=== PATIENT | male | born 1985 ===

== ENCOUNTER 2016-09-30 20:31 | Observation (INO) | payer OTHER ==
[2016-09-30 20:33] VITALS: BMI 28.3
[2016-09-30] MEDS ORDERED: Sodium Chloride 0.9% 1,000 ML IV STA ×2 (21:25→23:26)
[2016-09-30] MEDS ORDERED: DiphenhydrAMINE 50 mg/ml Inj IVP STA (21:25)
--- NOTE | 2016-09-30 21:26 | ED PDOC ---
Arrival/HPI - General Historian: Patient - History of Present Illness Time/Duration: Other (1 day) Context: Home - General Chief Complaint: Fever Time Seen by Provider: 09/30/16 21:24 - History of Present Illness Narrative History of Present Illness (Text): 09/30/16 21:20 This 31 yo male presents to this ED c/o sore throat, and fever, nausea x 1 day. Patient stated sore throat is causing him to have a headache. Patient denies vomiting, sob, rash, sick contact, recent travel, dizziness, hemoptysis, photophobia, neck stiffness, rash, or abnormal gait. (Orlin Wild) Past Medical History - Provider Review Nursing Documentation Reviewed: Yes - Infectious Disease Hx of Infectious Diseases: None - Psychiatric Hx Substance Use: No - Anesthesia Hx Anesthesia: No Family/Social History - Physician Review Nursing Documentation Reviewed: Yes Family/Social History: No Known Family HX Smoking Status: Never Smoked Hx Alcohol Use: Yes Frequency of alcohol use: Socially Hx Substance Use: No Allergies/Home Meds Allergies/Adverse Reactions: Allergies No Known Allergies Allergy (Verified 09/30/16 21:09) Review of Systems - Review of Systems Constitutional: Fevers. absent: Fatigue, Weight Change, Night Sweats Eyes: Normal. absent: Vision Changes, Photophobia, Eye Pain ENT: Sore Throat. absent: Rhinorrhea, Epistaxis Respiratory: Normal. absent: SOB, Cough, Sputum, Wheezing Cardiovascular: Normal Gastrointestinal: Normal. absent: Abdominal Pain, Nausea, Vomiting Genitourinary Male: Normal. absent: Dysuria, Frequency, Hematuria Musculoskeletal: Normal Skin: Normal. absent: Rash Neurological: Headache. absent: Dizziness, Focal Weakness, Gait Changes, Speech Changes, Facial Droop, Disequilibrium Endocrine: Normal Hemo/Lymphatic: Normal Psychiatric: Normal Physical Exam Temperature: Febrile Blood Pressure: Normal Pulse: Tachycardic Respiratory Rate: Normal Appearance: Positive for: Well-Appearing, Non-Toxic, Comfortable Pain Distress: None Mental Status: Positive for: Alert and Oriented X 3 - Systems Exam Head: Present: Atraumatic, Normocephalic Pupils: Present: PERRL Extroacular Muscles: Present: EOMI Conjunctiva: Present: Normal Ears: Present: Normal, NORMAL TM, Normal Canal. No: Erythema, TM Bulging, Fluid Mouth: Present: Moist Mucous Membranes, Normal Lips, Normal Tounge. No: Drooling Pharnyx: Present: ERYTHEMA. No: EXUDATE, TONSILS ENLARGED Neck: Present: Normal Range of Motion, Trachea Midline, Other (No Kernig sign, or Brudzinski sign). No: Meningeal Signs, MIDLINE TENDERNESS, Paraspinal Tenderness, Lymphadenopathy Respiratory/Chest: Present: Clear to Auscultation, Good Air Exchange. No: Respiratory Distress, Accessory Muscle Use, Wheezes, Retracting, Rhonchi Cardiovascular: Present: Regular Rate and Rhythm, Normal S1, S2. No: Murmurs Abdomen: Present: Normal Bowel Sounds. No: Tenderness, Distention, Peritoneal Signs Back: Present: Normal Inspection Upper Extremity: Present: Normal Inspection, Normal ROM, NORMAL PULSES, Neurovascularly Intact, Capillary Refill < 2s. No: Cyanosis, Edema Lower Extremity: Present: Normal Inspection, NORMAL PULSES, Normal ROM, Neurovascularly Intact, Capillary Refill < 2 s. No: Edema Neurological: Present: GCS=15, CN II-XII Intact, Speech Normal, Motor Func Grossly Intact, Normal Sensory Function, Normal Cerebellar Funct, Gait Normal Skin: Present: Warm, Dry, Normal Color. No: Rashes Psychiatric: Present: Alert, Oriented x 3, Normal Insight, Normal Concentration Vital Signs Temp Pulse Resp BP Pulse Ox 10/01/16 02:18 89 18 111/69 98 09/30/16 22:27 100.5 F H 115 H 18 114/55 L 95 09/30/16 21:53 102.9 F H 09/30/16 20:32 102.9 F H 118 H 18 113/68 95 Medical Decision Making Re-evaluation Time: 01:07 Reassessment Condition: Re-examined, Improving,but remains with symptoms ED Course and Treatment: I was available for consultation during PA evaluation. The chart reviewed by me , and I agree with disposition. The documented history was done by the physician fryer line helper. The documented physical exam was done by physician fryer line helper. The documented procedures were done by physician fryer line helper. (Isac Burkett) 10/01/16 01:[address] Cramer regarding patient symptoms. Patient continues with symptoms, elevated Leuk.. Pending CT head. He recommended to order CT chest w/ o to r/o PNA. He agrees with for observation. (Wild,Nahim P) - Lab Interpretations Lab Results: 09/30/16 21:40 09/30/16 21:40 Lab Results 09/30/16 23:50: pO2 90 H, VBG pH 7.40, VBG pCO2 38.0 L, VBG HCO3 23.5, VBG Total CO2 24.7, VBG O2 Sat (Calc) 98.7 H, VBG Base Excess -1.1 L, VBG Potassium 3.7, Glucose 120 H, Lactate 0.8, FiO2 21.0, Sodium 137.0, Chloride 104.0, Venous Blood Potassium 3.7 09/30/16 21:40: Sodium 139, Potassium 4.5, Chloride 98, Carbon Dioxide 24, Anion Gap 22 H, BUN 12, Creatinine 1.1, Est GFR ( Amer) > 60, Est GFR ( Non-Af Amer) > 60, Random Glucose 81, Calcium 10.0, Total Bilirubin 1.6 H, AST 43, ALT 49, Alkaline Phosphatase 62, Total Protein 8.3, Albumin 5.3 H, Globulin 3.1, Albumin/Globulin Ratio 1.7 09/30/16 21:40: WBC 18.3 H, RBC 5.19, Hgb 16.7, Hct 48.6, MCV 93.6, MCH 32.2, MCHC 34.4, RDW 12.0, Plt Count 288, MPV 11.6 H, Gran % 88.5 H, Lymph % (Auto) 5.6 L, [place] % (Auto) 5.8, Eos % (Auto) 0.0 L, Baso % (Auto) 0.1, Gran # 16.16 H , Lymph # 1.0 L, [place] # 1.1 H, Eos # 0.0, Baso # 0.02, Neutrophils % (Manual) 85 H, Lymphocytes % (Manual) 8 L, Monocytes % (Manual) 6, Eosinophils % (Manual ) 1, Platelet Evaluation Normal 09/30/16 21:40: Urine Color Yellow, Urine Appearance Clear, Urine pH 7.0, Ur Specific [place] 1.010, Urine Protein Negative, Urine Glucose (UA) Negative, Urine Ketones Negative, Urine Blood Small H, Urine Nitrate Negative, Urine Bilirubin Negative, Urine Urobilinogen 0.2, Ur Leukocyte Esterase Negative, Urine RBC 1 - 3, Urine WBC 0 - 2, Urine Bacteria Few - RAD Interpretation Narrative RAD Interpretations (Text): [facility] Division of Radiology [address] [place] [address] Tel. no. Patient Name: JONI BECKER Pt. Address: [address] [place] [address] Med. Rec #: [id number] [place] [address]: Orlin Wild PA-C Pt Order Location: [facility] : 1985 Male Age: 31 Order #: [id number] Reason for exam: GALINDO CT Scan HEAD W/O CONTRAST Exam Date: 09/30/16 This imaging exam was performed at [facility] EXAM: CT Head Without Intravenous Contrast CLINICAL HISTORY: 31 years old, male; Pain; Headache; Additional info: GALINDO TECHNIQUE: Axial computed tomography images of the head/brain without intravenous contrast. All CT scans at this facility use one or more dose reduction techniques, viz.: automated exposure control; ma/kV adjustment per patient size (including targeted exams where dose is matched to indication; i.e. head); or iterative reconstruction technique. COMPARISON: No relevant prior studies available. FINDINGS: Brain: No intracranial hemorrhage. No mass. No definite edema. Ventricles: No hydrocephalus. Bones/joints: No acute fracture. Soft tissues: Unremarkable. Sinuses: No acute sinusitis. Mastoid air cells: No mastoid effusion. Orbits: Unremarkable as visualized. IMPRESSION: 1. No acute intracranial abnormality. Dictated By: Tripp English MD Dictated Date/Time: 10/01/16222 Signed By: Tripp English MD Date Signed: 222 Transcribed By: NATAN Transcribe Date/Time : 10/01/16222 ACYP02/JL [facility] Division of Radiology [address] [place] [address] Tel. no. Patient Name: JONI BECKER Pt. Address: [address] [place] [address] Med. Rec #: [id number] [place] [address]: Orlin Wild PA-C Pt Order Location: [facility] : 1985 Male Age: 31 Order #: [id number] Reason for exam: cough, fever CT Scan CHEST W/O CONTRAST Exam Date: 10/01/16 This imaging exam was performed at [facility] EXAM: CT Chest Without Intravenous Contrast CLINICAL HISTORY: 31 years old, male; Pain; Chest pain; Patient HX: Cough, fever TECHNIQUE: Axial computed tomography images of the chest without intravenous contrast. All CT scans at this facility use one or more dose reduction techniques, viz.: automated exposure control; ma/kV adjustment per patient size (including targeted exams where dose is matched to indication; i.e. head); or iterative reconstruction technique. MIP reconstructed images were created and reviewed. Coronal and sagittal reformatted images were created and reviewed. COMPARISON: No relevant prior studies available. FINDINGS: Limitations: Lack of intravenous contrast. Lungs: Minimal peripheral airspace disease posterior LEFT lower lobe. Few pulmonary nodules, up to 0.4 cm. Pleural space: No pneumothorax. No significant effusion. Heart: Borderline cardiomegaly. No significant pericardial effusion. Bones/joints: No acute fracture. Soft tissues: Unremarkable. Vasculature: Unremarkable. No aneurysm. Lymph nodes: No pathologically enlarged lymph nodes. IMPRESSION: 1. Probable LEFT lower lobe atelectasis. Early pneumonia not entirely excluded. 2. Pulmonary nodules. For low-risk patients, no follow-up is necessary. For high-risk patients (smoking history or other known risk factors) an optional CT at 12 months could be performed. 3. Incidental/non-acute findings are described above. Dictated By: Tripp English MD Dictated Date/Time: 10/01/16227 Signed By: Tripp English MD Date Signed: 227 Transcribed By: NATAN Transcribe Date/Time : 10/01/16227 ACYP02/JL (Orlin Wild) Radiology Orders: 09/30/16 23:24 CHEST PORTABLE [RAD] Stat 09/30/16 23:25 HEAD W/O CONTRAST [CT] Stat 10/01/16 01:01 CHEST W/O CONTRAST [CT] Stat - Medication Orders Current Medication Orders: Discontinued Medications Acetaminophen (Tylenol 325mg Tab) 975 mg PO STAT STA Stop: 09/30/16 21:27 Last Admin: 09/30/16 21:53 Dose: 975 mg Acetaminophen (Tylenol 325mg Tab) 650 mg PO Q4 PRN PRN Reason: Fever >100.4 F Acetaminophen (Tylenol 325mg Tab) 650 mg PO Q6H PRN PRN Reason: Pain, Mild (1-3) Diphenhydramine HCl (Benadryl) 25 mg IVP STAT STA Stop: 09/30/16 21:26 Last Admin: 09/30/16 21:52 Dose: 25 mg Sodium Chloride (Sodium Chloride 0.9%) 1,000 mls @ 999 mls/hr IV .Q1H1M STA Stop: 09/30/16 22:25 Last Admin: 09/30/16 21:52 Dose: 999 mls/hr Sodium Chloride (Sodium Chloride 0.9%) 1,000 mls @ 999 mls/hr IV .Q1H1M STA Stop: 10/01/16 00:26 Last Admin: 09/30/16 23:26 Dose: 999 mls/hr Ceftriaxone Sodium (Rocephin 1 Gram Ivpb) 1 gm in 100 mls @ 200 mls/hr IVPB STAT STA PRN Reason: Protocol Stop: 10/01/16 00:23 Last Admin: 10/01/16 01:42 Dose: 200 mls/hr Azithromycin (Zithromax 500mg In Ns) 500 mg in 250 mls @ 167 mls/hr IVPB STAT STA PRN Reason: Protocol Stop: 10/01/16 01:23 Last Admin: 10/01/16 03:02 Dose: 167 mls/hr Dextrose/Sodium Chloride (Dextrose 5%/0.45% Ns 1000 Ml) 1,000 mls @ 150 mls/hr IV .Q6H40M VITO Levofloxacin/Dextrose (Levaquin 750mg) 750 mg in 150 mls @ 100 mls/hr IVPB STAT STA Stop: 10/01/16 03:59 Last Admin: 10/01/16 03:02 Dose: 100 mls/hr Potassium Chloride/Dextrose/Sod Cl (Potassium Chl 20 Meq In D5-1/2ns) 1,000 mls @ 150 mls/hr IV .Q6H40M VITO Last Admin: 10/01/16 03:02 Dose: 150 mls/hr Levofloxacin/Dextrose (Levaquin 750mg) 750 mg in 150 mls @ 100 mls/hr IVPB DAILY [facility] Ketorolac Tromethamine (Toradol) 15 mg IVP STAT STA Stop: 09/30/16 21:27 Last Admin: 09/30/16 21:53 Dose: 15 mg Ketorolac Tromethamine (Toradol) 30 mg IVP STAT STA Stop: 10/01/16 02:26 Last Admin: 10/01/16 03:01 Dose: 30 mg Metoclopramide HCl (Reglan) 10 mg IVP STAT STA Stop: 09/30/16 21:26 Last Admin: 09/30/16 21:52 Dose: 10 mg Ondansetron HCl (Zofran Inj) 8 mg IVP STAT STA Stop: 10/01/16 02:26 Pantoprazole Sodium (Protonix Inj) 40 mg IVP DAILY [facility] Last Admin: 10/01/16 09:57 Dose: 40 mg Disposition/Present on Arrival - Present on Arrival Any Indicators Present on Arrival: No History of DVT/PE: No History of Uncontrolled Diabetes: No Urinary Catheter: No History of Decub. Ulcer: No History Surgical Site Infection Following: None - Disposition Have Diagnosis and Disposition been Completed?: Yes Disposition Time: 01:08 Patient Plan: Admission - Disposition Diagnosis: Leukocytosis, Generalized weakness, Pneumonia Disposition: HOSPITALIZED Condition: STABLE
[2016-09-30 22:03] LABS: URINE BILIRUBIN NEGATIVE (NEGATIVE); URINE BLOOD SMALL (NEGATIVE); URINE GLUCOSE (UA) NEGATIVE (NEGATIVE); URINE KETONE NEGATIVE (NEGATIVE); URINE LEUKOCYTE ESTERASE NEGATIVE Leu/uL (NEGATIVE); URINE PROTEIN NEGATIVE mg/dL (<30 mg/dL); URINE UROBILINOGEN 0.2 E.U./dL (<1 E.U./dL)
[2016-09-30 22:09] LABS: URINE APPEARANCE CLEAR (CLEAR); URINE COLOR YELLOW (YELLOW)
[2016-09-30 22:26] LABS: URINE BACTERIA FEW (NEG); URINE WBC 0 - 2 /hpf (0-6)
[2016-09-30] MEDS ORDERED: Azithromycin 500MG/NS 250ml 500 MG/250 ML BAG IVPB STA (23:54)
[2016-09-30] MEDS ORDERED: cefTRIAXone 1 gm 1 GM/100 ML BAG IVPB STA (23:54)
[2016-10-01 00:13] LABS: BASO # 0.02 K/mm3 (0.0-2.0); BASO % 0.1 % (0.0-3.0); GRAN # 16.16 (1.4-6.5); GRAN % 88.5 % (50.0-68.0); HEMATOCRIT 48.6 % (42.0-52.0); LYMPH % 5.6 % (22.0-35.0); MEAN CELL VOLUME 93.6 fl (80.0-105.0); MEAN CORPUSCULAR HEMOGLOBIN 32.2 pg (25.0-35.0); MEAN CORPUSCULAR HGB CONC 34.4 g/dl (31.0-37.0); MEAN PLATELET VOLUME 11.6 fl (7.0-11.0); MONO # 1.1 (0.1-0.6); MONO % 5.8 % (1.0-6.0); PLATELET COUNT 288 10^3/uL (120.0-450.0); WHITE BLOOD COUNT 18.3 10^3/ul (4.5-11.0)
[2016-10-01 00:23] LABS: ALB/GLOB RATIO 1.7 (1.1-1.8); ALKALINE PHOSPHATASE 62 U/L (38-133); ALT/SGPT 49 U/L (7-56); AST/SGOT 43 U/L (15-59); BILIRUBIN,TOTAL 1.6 mg/dL (0.2-1.3); BLOOD UREA NITROGEN 12 mg/dL (7-21); CARBON DIOXIDE 24 mmol/L (21-33); CHLORIDE 98 mmol/L (98-107); GFR AFRICAN-AMERICAN > 60; GLUCOSE,RANDOM 81 mg/dL (70-110); POTASSIUM 4.5 mmol/L (3.6-5.0); SODIUM 139 mmol/L (132-148); TOTAL PROTEIN 8.3 g/dL (5.8-8.3)
[2016-10-01 00:24] LABS: VENOUS BLOOD GAS BASE EXCESS -1.1 mmol/L (0.0-2.0)
--- NOTE | 2016-10-01 02:18 | CP.PCM.HP ---
<Yakov Amaral - Last Filed: 10/01/16 02:37> History of Present Illness - History of Present Illness History of Present Illness: CC: Throat pain HPI: Pt is a 31 year old male with no significant past medical history who presents to [facility] ED complaining of headache and fever. Patient reports at 5 am this morning he woke up feeling feverish and with a frontal headache that has lasted him the entire day. Patient also indicates he has a sore throat with pain with swallowing. He denies any change in his vision or stiffness in his neck. Patient reports one episode of vomiting and associated nausea. He denies taking any medication for his symptoms. He states he has had sore throats in the past. He denies any sick contacts. Patient also reports midline lower back tenderness. He denies any urinary or bowel retention/incontinence as well as saddle anesthesia. He denies IVDA, chest pain, shortness of breath, abdominal pain, chills, rashes or change in bowel habits. 12 point ROS is negative otherwise mentioned in HPI. PMH: none PSH: none FMH: HTN, DM2 SH: Tob: denies, ETOH: social, ID: denies, Lives with and children, works as [employer] ALL: NKDA Meds: none PMD: none Present on Admission - Present on Admission Any Indicators Present on Admission: No History of DVT/PE: No History of Uncontrolled Diabetes: No Urinary Catheter: No Review of Systems - Review of Systems All systems: reviewed and no additional remarkable complaints except Review of Systems: except for what is mentioned in HPI Past Patient History - Infectious Disease Hx of Infectious Diseases: None - Past Social History Smoking Status: Never Smoked Alcohol: Social Drugs: Denies - PSYCHIATRIC Hx Substance Use: No - SURGICAL HISTORY Hx Surgeries: No - ANESTHESIA Hx Anesthesia: No Meds Allergies/Adverse Reactions: Allergies Allergy/AdvReac Type Severity Reaction Status Date / Time No Known Allergies Allergy Verified 09/30/16 21:09 Physical Exam - Head Exam Head Exam: ATRAUMATIC, NORMAL INSPECTION, NORMOCEPHALIC - Eye Exam Eye Exam: EOMI, PERRL - ENT Exam ENT Exam: Mucous Membranes Moist Additional comments: swollen tonsils noted +2, with exudates bilaterally - Neck Exam Neck exam: Positive for: Full Rom, Tenderness. Negative for: Thyromegaly - Respiratory Exam Respiratory Exam: Clear to Auscultation Bilateral, NORMAL BREATHING PATTERN - Cardiovascular Exam Cardiovascular Exam: Tachycardia, REGULAR RHYTHM, +S1, +S2 - GI/Abdominal Exam GI & Abdominal Exam: Normal Bowel Sounds, Soft - Extremities Exam Extremities exam: Positive for: full ROM, normal inspection, pedal pulses present. Negative for: calf tenderness - Back Exam Back exam: NORMAL INSPECTION, tenderness (midline lumbar spine and left lumbar) . absent: CVA tenderness (L), CVA tenderness (R) - Neurological Exam Neurological exam: Alert, CN II-XII Intact, Normal Gait, Oriented x3, Reflexes Normal - Psychiatric Exam Psychiatric exam: Normal Affect, Normal Mood - Skin Skin Exam: Dry, Intact, Normal Color, Warm Results - Vital Signs Recent Vital Signs: Last Vital Signs Temp 100.5 F H 09/30/16 22:27 Pulse 115 H 09/30/16 22:27 Resp 18 09/30/16 22:27 BP 114/55 L 09/30/16 22:27 Pulse Ox 95 09/30/16 22:27 - Labs Result Diagrams: 09/30/16 21:40 09/30/16 21:40 Assessment & Plan - Assessment and Plan (Free Text) Assessment: Pt is a 31 year old male with no significant past medical history who presents to [facility] ED complaining of headache and fever. He was found to have swollen tonsils with exudates present. Plan: 1. Tonsillitis - Exam showing swelling of tonsillitis b/l with exudates - WBC of 18, Fever on admission - Tylenol for pain - Rapid strep test - Flu A and B test - Soft liquid diet - IVF D5 1/2NS with 20 of LLC - Levaquin - follow up blood culture - CBC in AM - Follow up neck CT 2. Lower back pain - Toradol and Tylenol - monitor 3. GI ppx - Protonix Case discussed and reviewed with attending - Date & Time Date: 10/01/16 Time: 02:21 <Jean Paul Cramer - Last Filed: 10/01/16 07:17> Results - Vital Signs Recent Vital Signs: Last Vital Signs Temp 99.7 F H 10/01/16 03:13 Pulse 100 H 10/01/16 03:13 Resp 20 10/01/16 03:13 BP 109/71 10/01/16 03:13 Pulse Ox 98 10/01/16 02:18 - Labs Result Diagrams: 09/30/16 21:40 09/30/16 21:40 Attending/Attestation - Attestation I have personally seen and examined this patient.: Yes I have fully participated in the care of the patient.: Yes I have reviewed all pertinent clinical information: Yes Notes (Text): Exudative tonsillitis, possibly early pna or atelectesis on left side, increased wbc Plan Rapid flu, Group A strep rapid ag, empiric levaquin, soft diet, hydrate see orders for detail.
--- NOTE | 2016-10-01 02:24 | CT ---
EXAM: CT Head Without Intravenous Contrast CLINICAL HISTORY: 31 years old, male; Pain; Headache; Additional info: GALINDO TECHNIQUE: Axial computed tomography images of the head/brain without intravenous contrast. All CT scans at this facility use one or more dose reduction techniques, viz.: automated exposure control; ma/kV adjustment per patient size (including targeted exams where dose is matched to indication; i.e. head); or iterative reconstruction technique. COMPARISON: No relevant prior studies available. FINDINGS: Brain: No intracranial hemorrhage. No mass. No definite edema. Ventricles: No hydrocephalus. Bones/joints: No acute fracture. Soft tissues: Unremarkable. Sinuses: No acute sinusitis. Mastoid air cells: No mastoid effusion. Orbits: Unremarkable as visualized. IMPRESSION: 1. No acute intracranial abnormality.
--- NOTE | 2016-10-01 02:28 | CT ---
EXAM: CT Chest Without Intravenous Contrast CLINICAL HISTORY: 31 years old, male; Pain; Chest pain; Patient HX: Cough, fever TECHNIQUE: Axial computed tomography images of the chest without intravenous contrast. All CT scans at this facility use one or more dose reduction techniques, viz.: automated exposure control; ma/kV adjustment per patient size (including targeted exams where dose is matched to indication; i.e. head); or iterative reconstruction technique. MIP reconstructed images were created and reviewed. Coronal and sagittal reformatted images were created and reviewed. COMPARISON: No relevant prior studies available. FINDINGS: Limitations: Lack of intravenous contrast. Lungs: Minimal peripheral airspace disease posterior LEFT lower lobe. Few pulmonary nodules, up to 0.4 cm. Pleural space: No pneumothorax. No significant effusion. Heart: Borderline cardiomegaly. No significant pericardial effusion. Bones/joints: No acute fracture. Soft tissues: Unremarkable. Vasculature: Unremarkable. No aneurysm. Lymph nodes: No pathologically enlarged lymph nodes. IMPRESSION: 1. Probable LEFT lower lobe atelectasis. Early pneumonia not entirely excluded. 2. Pulmonary nodules. For low-risk patients, no follow-up is necessary. For high-risk patients (smoking history or other known risk factors) an optional CT at 12 months could be performed. 3. Incidental/non-acute findings are described above.
[2016-10-01] MEDS ORDERED: Dextrose 5%/0.45% NS 1,000 ML IV SCH (02:30)
[2016-10-01] MEDS ORDERED: levoFLOXacin 750 mg in D5W 750 MG/150 ML BAG IVPB STA (02:30)
[2016-10-01] MEDS ORDERED: Potassium Ch 20mEq in D5-1/2NS 1,000 ML IV SCH (02:45)
[2016-10-01 07:12] LABS: EOSINOPHIL 1 % (0.0-3.0); NEUTROPHIL 85 % (50.0-70.0)
[2016-10-01 07:13] LABS: PLATELET ESTIMATE NORMAL (NORMAL)
[2016-10-01 07:40] LABS: BASO # 0.02 K/mm3 (0.0-2.0); BASO % 0.1 % (0.0-3.0); GRAN # 11.68 (1.4-6.5); GRAN % 82.6 % (50.0-68.0); HEMATOCRIT 39.1 % (42.0-52.0); LYMPH # 1.2 (1.2-3.4); LYMPH % 8.2 % (22.0-35.0); MEAN CELL VOLUME 92.4 fl (80.0-105.0); MEAN CORPUSCULAR HGB CONC 33.5 g/dl (31.0-37.0); MEAN PLATELET VOLUME 10.7 fl (7.0-11.0); MONO # 1.3 (0.1-0.6); MONO % 9.1 % (1.0-6.0); RED CELL DISTRIBUTION WIDTH 12.1 % (11.5-14.5); WHITE BLOOD COUNT 14.1 10^3/ul (4.5-11.0)
[2016-10-01 09:54] VITALS: BP 102/64; PULSE 104; RESP 18; TEMP 99.2; O2SAT 96
--- NOTE | 2016-10-01 11:13 | RAD ---
HISTORY: fever COMPARISON: No prior. FINDINGS: LUNGS: No pulmonary infiltrate. PLEURA: No significant pleural effusion identified, no pneumothorax apparent. CARDIOVASCULAR: Normal. OSSEOUS STRUCTURES: No significant abnormalities. VISUALIZED UPPER ABDOMEN: Normal. OTHER FINDINGS: None. IMPRESSION: No active disease.
--- NOTE | 2016-10-01 13:24 | CARD ---
APPROVED REPORT EKG Measurement Heart [id number] <Conclusion> Sinus tachycardia Nonspecific T wave abnormality Abnormal ECG
--- NOTE | 2016-10-01 15:06 | CP.PCM.DIS ---
Provider - Provider Date of Admission: 10/01/16 01:03 Attending physician: Sushila Castillo MD Primary care physician: Ale Medina DO Time Spent in preparation of Discharge (in minutes): 25 Diagnosis - Discharge Diagnosis (1) Tonsillitis with exudate Status: Acute (2) Pneumonia Status: Acute (3) Fever Status: Acute (4) Leukocytosis Status: Acute Hospital Course - Lab Results Lab Results: Most Recent Lab Values WBC 14.1 10^3/ul (4.5-11.0) H D 10/01/16 06:30 RBC 4.23 10^6/uL (3.5-6.1) 10/01/16 06:30 Hgb 13.1 g/dL (14.0-18.0) L D 10/01/16 06:30 Hct 39.1 % (42.0-52.0) L 10/01/16 06:30 MCV 92.4 fl (80.0-105.0) 10/01/16 06:30 MCH 31.0 pg (25.0-35.0) 10/01/16 06:30 MCHC 33.5 g/dl (31.0-37.0) 10/01/16 06:30 RDW 12.1 % (11.5-14.5) 10/01/16 06:30 Plt Count 258 10^3/uL (120.0-450.0) 10/01/16 06:30 MPV 10.7 fl (7.0-11.0) 10/01/16 06:30 Gran % 82.6 % (50.0-68.0) H 10/01/16 06:30 Lymph % (Auto) 8.2 % (22.0-35.0) L 10/01/16 06:30 [place] % (Auto) 9.1 % (1.0-6.0) H 10/01/16 06:30 Eos % (Auto) 0.0 % (1.5-5.0) L 10/01/16 06:30 Baso % (Auto) 0.1 % (0.0-3.0) 10/01/16 06:30 Gran # 11.68 (1.4-6.5) H 10/01/16 06:30 Lymph # 1.2 (1.2-3.4) 10/01/16 06:30 [place] # 1.3 (0.1-0.6) H 10/01/16 06:30 Eos # 0.0 (0.0-0.7) 10/01/16 06:30 Baso # 0.02 K/mm3 (0.0-2.0) 10/01/16 06:30 Neutrophils % (Manual) 85 % (50.0-70.0) H 09/30/16 21:40 Lymphocytes % (Manual) 8 % (22.0-35.0) L 09/30/16 21:40 Monocytes % (Manual) 6 % (1.0-6.0) 09/30/16 21:40 Eosinophils % (Manual) 1 % (0.0-3.0) 09/30/16 21:40 Platelet Evaluation Normal (NORMAL) 09/30/16 21:40 pO2 90 mm/Hg (30-55) H 09/30/16 23:50 VBG pH 7.40 (7.32-7.43) 09/30/16 23:50 VBG pCO2 38.0 (40-60) L 09/30/16 23:50 VBG HCO3 23.5 mmol/l (21-28) 09/30/16 23:50 VBG Total CO2 24.7 mmol.L (22-28) 09/30/16 23:50 VBG O2 Sat (Calc) 98.7 % (40-65) H 09/30/16 23:50 VBG Base Excess -1.1 mmol/L (0.0-2.0) L 09/30/16 23:50 VBG Potassium 3.7 mmol/L (3.6-5.2) 09/30/16 23:50 Sodium 137.0 mmol/L (132-148) 09/30/16 23:50 Chloride 104.0 mmol/L (98-107) 09/30/16 23:50 Glucose 120 mg/dl (75-110) H 09/30/16 23:50 Lactate 0.8 mmol/L (0.7-2.1) 09/30/16 23:50 FiO2 21.0 % 09/30/16 23:50 Sodium 139 mmol/L (132-148) 09/30/16 21:40 Potassium 4.5 mmol/L (3.6-5.0) 09/30/16 21:40 Chloride 98 mmol/L (98-107) 09/30/16 21:40 Carbon Dioxide 24 mmol/L (21-33) 09/30/16 21:40 Anion Gap 22 (10-20) H 09/30/16 21:40 BUN 12 mg/dL (7-21) 09/30/16 21:40 Creatinine 1.1 mg/dL (0.5-1.4) 09/30/16 21:40 Est GFR ( Amer) > 60 09/30/16 21:40 Est GFR (Non-Af Amer) > 60 09/30/16 21:40 Random Glucose 81 mg/dL (70-110) 09/30/16 21:40 Calcium 10.0 mg/dL (8.4-10.5) 09/30/16 21:40 Total Bilirubin 1.6 mg/dL (0.2-1.3) H 09/30/16 21:40 AST 43 U/L (15-59) 09/30/16 21:40 ALT 49 U/L (7-56) 09/30/16 21:40 Alkaline Phosphatase 62 U/L (38-133) 09/30/16 21:40 Total Protein 8.3 g/dL (5.8-8.3) 09/30/16 21:40 Albumin 5.3 g/dL (3.0-4.8) H 09/30/16 21:40 Globulin 3.1 gm/dL 09/30/16 21:40 Albumin/Globulin Ratio 1.7 (1.1-1.8) 09/30/16 21:40 Procalcitonin 0.15 NG/ML (0.19-0.49) L 10/01/16 06:30 Venous Blood Potassium 3.7 mmol/L (3.6-5.2) 09/30/16 23:50 Urine Color Yellow (YELLOW) 09/30/16 21:40 Urine Appearance Clear (CLEAR) 09/30/16 21:40 Urine pH 7.0 (4.7-8.0) 09/30/16 21:40 Ur Specific [place] 1.010 (1.005-1.035) 09/30/16 21:40 Urine Protein Negative mg/dL (<30 mg/dL) 09/30/16 21:40 Urine Glucose (UA) Negative mg/dL (NEGATIVE) 09/30/16 21:40 Urine Ketones Negative mg/dL (NEGATIVE) 09/30/16 21:40 Urine Blood Small (NEGATIVE) H 09/30/16 21:40 Urine Nitrate Negative (NEGATIVE) 09/30/16 21:40 Urine Bilirubin Negative (NEGATIVE) 09/30/16 21:40 Urine Urobilinogen 0.2 E.U./dL (<1 E.U./dL) 09/30/16 21:40 Ur Leukocyte Esterase Negative [place]/uL (NEGATIVE) 09/30/16 21:40 Urine RBC 1 - 3 /hpf (0-2) 09/30/16 21:40 Urine WBC 0 - 2 /hpf (0-6) 09/30/16 21:40 Urine Bacteria Few (NEG) 09/30/16 21:40 Influenza Typ A,B (EIA) Negative for flu a/b (NEGATIVE) 10/01/16 08:16 Grp A Beta Strep Ag Negative (NEGATIVE) 10/01/16 08:16 - Hospital Course Hospital Course: 31 year old male with no significant past medical history who presented with complaint of fever, generalized body aches and throat ache. He was found to have exudative tonsillitis and leukocytosis. CT chest also showed possible early LLL pneumonia and pulmonary nodules. He had fever of 102.9 last night and leukocytosis of 18.3 on admission. He was started on iv antiobiotics. Cultures were pending although rapid strep test, influenza test and procalcitonin were negative. This morning patient expressed wished to sign out AMA. He was explained the risks of signing out AMA and verbalized understanding but still signed out AMA. He was advised to followed up with his pmd to follow up pulmonary nodules with repeat CT chest. He was prescribed levaquin and explained side effect risks of antibiotics as well. Avoid exercise or strenuous activity while on antibiotics. He was advised to return to ER if febrile or worsening of symptoms. Follow up with ENT and pmd. Sushila Castillo MD Hospitalist. Discharge Exam - Head Exam Head Exam: ATRAUMATIC, NORMAL INSPECTION, NORMOCEPHALIC - Eye Exam Eye Exam: EOMI Pupil Exam: NORMAL ACCOMODATION - ENT Exam Additional comments: tonsillar exudates - Neck Exam Neck exam: Full Rom - Respiratory Exam Respiratory Exam: Clear to PA & Lateral. absent: Rhonchi, Wheezes - Cardiovascular Exam Cardiovascular Exam: REGULAR RHYTHM, +S1, +S2 - GI/Abdominal Exam GI & Abdominal Exam: Normal Bowel Sounds, Soft. absent: Organomegaly, Tenderness - Extremities Exam Extremities exam: normal inspection - Neurological Exam Neurological exam: Alert, Oriented x3 - Psychiatric Exam Psychiatric exam: Normal Affect, Normal Mood Discharge Plan - Discharge Medications Prescriptions: Levofloxacin [Levaquin] 500 mg PO DAILY #10 tablet - Follow Up Plan Condition: IMPROVED Disposition: AGAINST MEDICAL ADVICE Patient education suggested?: Yes Referrals: Ale Medina DO [Primary Care Provider] -
[2016-10-02] MEDS ORDERED: levoFLOXacin 750 mg in D5W 750 MG/150 ML BAG IVPB SCH (10:00)
== END 2016-10-01 13:40 | disposition left against medical advice (07) ==
LOC: ED 20:31 → ERH 10-01 01:03 → 3RNO 10-01 02:44
PROVIDERS: ADMIT Hospitalist; ATTEND Internal Medicine
DX: J18.9 Pneumonia, unspecified organism (principal); J03.90 Acute tonsillitis, unspecified; M54.5 Low back pain; J98.11 Atelectasis
CPT/HCPCS: 36415; 70450; 71010; 71250; 80053; 81001; 82803; 84145; 85025; 87040; 87070; 87086; 87430; 87804; 93005; 96374; 96375; 96376; 99285; C9113; G0378; J0456; J0696; J1200; J1885; J2765; J7040